=== PATIENT | male | born 1960 | race Caucasian/White ===

== ENCOUNTER → 2024-02-03 | Outpatient (REF) | payer MEDICARE | LOC: US 12:06 | PROVIDERS: ATTEND Nurse Practitioner Family | DX: R10.9 Unspecified abdominal pain (principal) | CPT/HCPCS: 76700 ==

== ENCOUNTER → 2024-02-03 | Outpatient (REF) | payer MEDICARE ==
[~2024-02-03] MED LIST: IOPAMIDOL 370 MG/ML 100 ML INFUS..BTL INJ ONE; SODIUM CHLORIDE 0.9% 500ML 500 ML ONE
[2024-02-03 15:12] LABS: CREATININE, SERUM 1.58 mg/dL (0.72-1.25)
== END ==
LOC: CT 14:12
PROVIDERS: ATTEND Family Medicine
DX: R11.0 Nausea (principal)
CPT/HCPCS: 36415; 74177; 82565; 84520; 96360; J7040; Q9967